=== PATIENT | male | born 1945 | race Two or more races ===

== ENCOUNTER 2017-11-02 01:35 | Emergency (ER) | payer OTHER, MEDICARE, MEDICAID ==
[~2017-11-02] VITALS: Ht 177.8 cm; Wt 102.1 kg
--- NOTE | 2017-11-02 02:26 | NUR ---
72 Y/O MALE PLACED IN BED 6 C/O EPIGASTRIC DISCOMFORT. PT IS AN OK TO BOOK. PT IS REFUSING ALL BLOOD DRAWS.
--- NOTE | 2017-11-02 03:10 | NUR ---
PT SEEN BY DR. RUSS. PT OKAY TO BOOK PER DR. RUSS.
[2017-11-02 03:16] VITALS: BP 118/76
== END 2017-11-02 03:18 ==
LOC: ER 01:37
DX: R07.89 Other chest pain (principal); I10 Essential (primary) hypertension; I48.91 Unspecified atrial fibrillation; N40.0 Benign prostatic hyperplasia without lower urinary tract symptoms; E05.00 Thyrotoxicosis with diffuse goiter without thyrotoxic crisis or storm; Z60.2 Problems related to living alone
CPT/HCPCS: 71045; 93005; 99284; A4606; Z7610